=== PATIENT | male | born 1970 | race Caucasian/White ===

== ENCOUNTER 2016-05-08 15:27 | Outpatient (CLI) | payer OTHER ==
--- NOTE | 2016-05-08 15:51 | DIAGNOSTIC IMAGING REPORT ---
PROCEDURE: XR CHEST 2 VIEW INDICATION: PALPITATIONS cough, history of smoking TECHNIQUE: Two views. COMPARISON: None. FINDINGS: The cardiomediastinal contour and central vasculature are within normal limits. The lungs are clear without focal consolidation, pleural effusion, or pneumothorax. The visualized osseous structures are intact. IMPRESSION: 1. Normal chest.
== END 2016-05-08 23:00 | disposition home or self-care (01) ==
LOC: RT SRH 15:27
DX: R00.2 Palpitations (principal)